=== PATIENT | female | born 1940 | race Caucasian/White ===

== ENCOUNTER 2024-10-22 09:26 | Inpatient (IN) | payer MEDICARE ==
[~2024-10-22] VITALS: Ht 147.3 cm; Wt 32.0 kg
[~2024-10-22 09:26] MED LIST: ATOR20TA66 PO; LEVO75TA PO; NICO-631 TD; PRED10TA PO; PROP10TA10 PO; RANI-290 PO; ZOLP5TAB8 PO
--- NOTE | 2024-10-22 09:44 | ELECTROCARDIOGRAPH REPORT ---
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 Marcus Owusu Measurements Intervals [place] Rate: 78 P: 0 ID: 0 QRS: 265 QRSD: 83 T: -74 QT: 377 QTc: 430 Interpretive Statements Atrial fibrillation Inferior infarct, old Anterior infarct, old Lateral leads are also involved Electronically Signed On 10-22-2024 11:17:[address] Marcus Owusu Please click the below link to view image of tracing.
--- NOTE | 2024-10-22 10:12 | Physician Documentation ---
History of Present Illness ~ Chief Complaint: Mechanical Fall Stated Complaint: FALL Time Seen by MD: 09:28 OK to notify your PCP?: Yes Primary Medical Doctor: nolberto Source: patient, RN/MD, EMS, RN notes reviewed, EMS notes reviewed Mode of Arrival: EMS, Other Exam Limitations: clinical condition HPI 83 year old female with history of dementia seen in bed 11 presents to the emergency department via EMS from [facility] due to a fall. It is unknown the amount of downtime and if the patient loss consciousness or not. She presents with a hematoma to her left forehead and is complaining of back pain but denies any neck pain. Patient uses 2L of oxygen at baseline. Patient is a poor historian due to dementia so history was obtained from EMS. Patient is reported as being very fatigued weak frail Tetanus within 5 Years?: No Medication Reconciliation Allergies: Coded Allergies: cephalexin (Verified Allergy, Intermediate, itching, 11/04/21) morphine (Verified Allergy, Intermediate, rash, 11/04/21) Scheduled Atorvastatin Calcium (Atorvastatin Calcium), 40 MG PO DAILY Famotidine (Famotidine), 1 TAB PO DAILY, (Reported) Ferrous Sulfate* (Ferrous Sulfate*), 1 TAB PO DAILY, (Reported) Fexofenadine Hcl* (Bailey*), 1 TAB PO DAILY, (Reported) Levothyroxine Sodium* (Synthroid*), 1 TAB PO DAILY, (Reported) Melatonin (Melatonin), 1 TAB PO HS, (Reported) Discontinued Medications Nicotine 14 MG Patch* (Habitrol 14 MG Patch*), 1 PATCH TD DAILY Discontinued Reason: patient no longer taking Prednisone (Prednisone), 10 MG PO QAM@0830 Discontinued Reason: patient no longer taking Propranolol Hcl* (Inderal*), 1 TAB PO, (Reported) Discontinued Reason: patient no longer taking Ranitidine Hcl (Zantac), 150 MG PO DAILY PRN, (Reported) Discontinued Reason: patient no longer taking Zolpidem Tartrate* (Ambien*), 2 TAB PO HS PRN for sleep, (Reported) Discontinued Reason: patient no longer taking Past Medical History Past Medical History: Atrial Fibrillation, Bowel Obstruction, Graves' Disease, Colon Cancer Past Surgical History: noncontributory Lives with: Family Lives In: Home Occupation: retired Review of Systems ROS Unable to obtain ROS due to dementia. Physical Exam Vital Signs: RN Vital Signs have been reviewed: Yes, Temperature: 98.1, Heart Rate: 79, Respiratory Rate: 16, BP: 150/125, Pulse Oximetry: 94, Weight: 32.000 Oxygen Flow Rate: 2.0 Pulse Oximetry Reflects: adequate oxygenation Physical Exam General: The patient is small, thin, and frail., Nontoxic appearing and is in no acute distress. Skin: [place], warm and dry with no rashes. HEENT: 2cm area of ecchymosis to left temporal scalp. Head was normocephalic Eyes - pupils equal, round, reactive to light and accommodation. Extraocular movements were intact. Conjunctivae were nonicteric. Ears - bilateral tympanic membranes were normal. The mouth and oropharynx were clear with moist mucous membranes. There were no pharyngeal exudates or erythema. Neck: Supple and nontender. There was no jugular venous distention, lymphadenopathy, thyromegaly or masses. Chest: Clear to auscultation bilaterally without wheezes, rales or rhonchi. No accessory muscle use. No dullness to percussion. Heart: Rate regular and rhythmic. S1, S2. No murmurs. Palpation of the chest wall was normal. No rubs or thrills. Abdomen: Soft, nontender and nondistended. Positive bowel sounds. No guarding or rebound. No hepatosplenomegaly or palpable masses. Extremities: No cyanosis, clubbing or edema. The patient moves all extremities. Pulses were equal and symmetric. Neurologic: Cranial nerves II-XII were intact. Sensation was intact to light touch throughout. Motor strength was 5/5 in all four extremities. Deep tendon reflexes were intact in both upper and lower extremities. Psychologic: The patient was oriented to person, place and time. The patient demonstrated appropriate judgement and insight. Progress Progress Note 1714: The case was discussed with Dr. Vargas who was informed on the patient and kindly agreed to admission. Results/Orders Reviewed/noted all lab results: Yes Results/Orders Orders - YONAS NIEVES MD Chest,Single View (10/22/24 09:29) Monitor (10/22/24 09:29) Electrocardiogram (10/22/24 09:29) Ct Lumbar Spine (10/22/24 09:30) Ct Cervical Spine (10/22/24 09:30) Ct Head (10/22/24 09:30) Normal Saline 1000ml (Sodium Chloride 10 (10/22/24 16:25) Culture Blood (10/22/24 16:41) Page Hospitalist (10/22/24 16:41) Fill Out Med Reconciliation (10/22/24 16:41) Cult Urine + [place] Ct (10/22/24 17:33) Completed Orders - YONAS NIEVES MD Cbc/Diff (10/22/24 09:29) MG (10/22/24 09:29) PBNP (10/22/24 09:29) Chest,Single View (10/22/24 09:29) Electrocardiogram (10/22/24 09:29) BMP (10/22/24 09:29) Hs Troponin I W Calculations (10/22/24 09:29) Ct Lumbar Spine (10/22/24 09:30) Ct Cervical Spine (10/22/24 09:30) Ct Head (10/22/24 09:30) Normal Saline 1000ml (Sodium Chloride 10 (10/22/24 16:25) Hs Troponin I W Calculations (10/22/24 16:26) Levofloxacin-Levaquin 750mg/D5 (Levaquin (10/22/24 16:45) Procalcitonin (10/22/24 16:41) Lacticsepsis (10/22/24 16:41) Ua W/Microscopic, Cult If Ind (10/22/24 16:37) Medications Received in ER Medications (Trade) Dose Ordered Sig/Jacinta Route PRN Reason Start Time Stop Time Status Last Admin Dose Admin (sodium chloride 1000ml IV soln) 500 ml ONCE ONCE IVB 10/22/24 16:25 10/22/24 16:27 DC 10/22/24 18:05 500 ML Sodium Chloride 1,000 ml @ 200 mls/hr Q5H ONCE IV 10/22/24 16:25 10/22/24 21:24 10/22/24 18:37 200 MLS/HR Levofloxacin 150 ml @ 100 mls/hr ONCE ONCE IV 10/22/24 16:45 10/22/24 18:14 DC 10/22/24 18:37 100 MLS/HR Vital Signs 10/22/24 10/22/24 10/22/24 10/22/24 09:30 10:27 10:33 12:54 Temp 98.1 Pulse 79 83 77 Resp 16 20 20 11 B/P (MAP) 150/125 148/81 (103) 143/60 (87) Pulse Ox 94 91 96 O2 Flow Rate 2.0 2.0 2.0 10/22/24 10/22/24 10/22/24 14:00 16:00 18:45 Pulse 77 79 Resp 18 13 16 B/P (MAP) 135/63 (87) 132/62 (85) Pulse Ox 96 96 O2 Flow Rate 2.0 2.0 Laboratory Tests Test 10/22/24 10:22 10/22/24 16:37 10/22/24 17:12 White Blood Count 17.5 H Red Blood Count 3.45 L Hemoglobin 11.6 L Hematocrit 35.3 Mean Corpuscular Volume 102.2 H Mean Corpuscular Hemoglobin 33.6 H Mean Corpuscular Hemoglobin Concent 32.8 L Red Cell Distribution Width 12.5 Platelet Count 211 Mean Platelet Volume 7.7 Neutrophils (%) (Auto) 90.8 H Lymphocytes (%) (Auto) 3.9 L Monocytes (%) (Auto) 4.9 Eosinophils (%) (Auto) 0.2 Basophils (%) (Auto) 0.2 Neutrophils # (Auto) 15.9 H Lymphocytes # (Auto) 0.7 L Monocytes # (Auto) 0.9 Eosinophils # (Auto) 0.0 Basophils # (Auto) 0.0 CBC Comment Sodium Level 144 Potassium Level 4.0 Chloride Level 103 Carbon Dioxide Level 36.6 H Anion Gap 4 L Blood Urea Nitrogen 19 H Creatinine 0.83 Estimated GFR/1.73 m2 65 BUN/Creatinine Ratio 22.9 H Glucose Level 190 H Calcium Level 9.6 Magnesium Level 2.0 Troponin I High Sensitivity 7 11 Pro-B-Type Natriuretic Peptide 268 Albumin 3.7 Chemistry Comments Urine Specimen Description Straight cath Urine Color Yellow Urine Clarity Cloudy Urine pH 5.5 Urine Specific [place] >=1.030 Urine Protein Negative Urine Glucose (UA) Negative Urine Ketones Negative Urine Occult Blood Negative Urine Nitrite Negative Urine Bilirubin Negative Urine Urobilinogen 0.2 Urine Leukocyte Esterase Negative Urine RBC None seen Urine WBC 5-10 H Urine Squamous Epithelial Cells Few Urine Bacteria 4+ Urine Mucus None seen Urine Culture Indicated Indicated Volume Urine Centrifuged 10 ml Urine Comment Lactic Acid Level 1.0 Troponin I High Sens Percent Delta 57 Troponin I Hi Sens Absolute Change 4 Procalcitonin 0.08 Microbiology Date/Time Source Procedure Growth Status 10/22/24 17:33 Urine Straight Cath Urine Culture - Preliminary Culture received. Resulted 10/22/24 17:12 Blood Arm Right Blood Culture - Preliminary NEGATIVE (LESS THAN 24 HOURS) Resulted Re-Evaluation Re-Evaluation : Re-Evaluation: Improved Progress Patient was hydrated. Laboratory work was obtained. Patient is fatigued weak frail very poor historian. History obtained mostly from EMS and medical record. Patient's white count was elevated at 17.5 hemoglobin 11 and 35 MCV 102.3 platelets 211 with a left shift of 90.8 neutrophils concerning for infection. Chemistry shows some slight CO2 retention at 36.6 otherwise reassuring glucose slightly elevated at 190 lactic acid however is negative at 1.0 procalcitonin at 0.08. Troponin is negative. Patient's urinalysis shows WBCs 5-10 and 4+ bacteria consistent with UTI. Patient's workup was reassuring. In addition to fluids patient then received levofloxacin 750 mg. I contacted the hospitalist Dr. Esposito who kindly agreed to admit the patient for further workup and care. 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 Pulse oximetry shows low oxygenation with 2 L at 94%. Abnormal, my interpretation. 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 Yonas Nieves Measurements Intervals [place] Rate: 78 P: 0 TN: 0 QRS: 265 QRSD: 83 T: -74 QT: 377 QTc: 430 Interpretive Statements Atrial fibrillation Inferior infarct, old Anterior infarct, old Lateral leads are also involved Electronically Signed On 10-22-2024 11:17:[address] Yonas Nieves Please click the below link to view image of tracing. EKG Date and Time:10/22/24 0943 Electronically Signed by: YONAS NIEVES MD Date and Time: 10/22/24 1117 Chest X-Ray : Additional Comments EXAM: XR Chest, 1 View CLINICAL INDICATION: CHEST PAIN TECHNIQUE: Frontal view of the chest. COMPARISON: None FINDINGS: LUNGS AND PLEURAL SPACES: Unremarkable. No consolidation. No pneumothorax. HEART: Cardiomegaly without overt failure. MEDIASTINUM: Unremarkable. Normal mediastinal contour. BONES/JOINTS: Unremarkable. No acute fracture. OTHER FINDINGS: . IMPRESSION: Cardiomegaly without overt failure. Electronically Signed by:TEE LEMON MD Date & Time: 10/22/[address] #1: Impression EXAM: CT Lumbar Spine Without Intravenous Contrast CLINICAL INDICATION: fall pain, TECHNIQUE: Axial computed tomography images of the lumbar spine without intravenous contrast. This CT exam was performed using one or more of the following dose reduction techniques: automated exposure control, adjustment of the mA and/or kV according to patient size, and/or use of iterative reconstruction technique. CONTRAST: COMPARISON: None FINDINGS: VERTEBRAE: Degenerative facet arthropathy throughout the lumbar spine, most prominent in the lower lumbar spine. No acute fracture. DISCS/SPINAL CANAL/NEURAL FORAMINA: Degenerative disc disease throughout the lumbar spine. SOFT TISSUES: Unremarkable. VASCULATURE: Scattered calcified atherosclerotic disease of aorta. KIDNEYS AND URETERS: Partially visualized renal cysts. OTHER FINDINGS: . . IMPRESSION: 1. No acute fracture. 2. Degenerative changes lumbar spine as described. Electronically Signed by:TEE LEMON MD Date & Time: 10/22/[address] #2: Impression CLINICAL INFORMATION: Fall injury. Pain. TECHNIQUE: Axial imaging was obtained through the brain without contrast. Axial CT imaging of the cervical spine was also obtained without contrast. Coronal and sagittal reformatted images were obtained, reviewed, and stored. One or more of the following dose reduction techniques were used: Automated exposure control. Adjustment of mA and/or kV according to patient size. CTDIvol = 49.2, 9.34 mGy DLP = 828, 151.12 mGy-cm COMPARISON: CT HEAD on DOS: 11/04/21 FINDINGS: CT HEAD: There is no acute intracranial hemorrhage or extraaxial fluid collection. No mass effect or midline shift. Atrophic changes with dilation of the ventricles and widening of the sulci. Basal cisterns are patent. Scattered areas of hypoattenuation are seen in the periventricular and subcortical white matter, which are nonspecific but most likely sequelae of small vessel ischemic disease.The calvarium is unremarkable. Paranasal sinuses and mastoid air cells are clear. CT CERVICAL SPINE: There is straightening of the normal cervical lordosis. No significant spondylolisthesis. Vertebral body heights are maintained. Posterior elements are intact. No evidence of acute fracture. Multilevel moderate to severe disc space narrowing with associated endplate sclerosis and endplate spurring. Multilevel facet and uncinate hypertrophy with areas of moderate neural foraminal stenosis. Prevertebral and paraspinal soft tissues are unremarkable. IMPRESSION: 1. No CT evidence of acute intracranial abnormality. 2. No evidence of acute fracture or spondylolisthesis in the cervical spine. 3. Nonacute findings as described above. Electronically Signed by:CHINO HONG DO Date & Time: 10/22/[address] [facility] [address] #3: Impression CLINICAL INFORMATION: Fall injury. Pain. TECHNIQUE: Axial imaging was obtained through the brain without contrast. Axial CT imaging of the cervical spine was also obtained without contrast. Coronal and sagittal reformatted images were obtained, reviewed, and stored. One or more of the following dose reduction techniques were used: Automated exposure control. Adjustment of mA and/or kV according to patient size. CTDIvol = 49.2, 9.34 mGy DLP = 828, 151.12 mGy-cm COMPARISON: CT HEAD on DOS: 11/04/21 FINDINGS: CT HEAD: There is no acute intracranial hemorrhage or extraaxial fluid collection. No mass effect or midline shift. Atrophic changes with dilation of the ventricles and widening of the sulci. Basal cisterns are patent. Scattered areas of hypoattenuation are seen in the periventricular and subcortical white matter, which are nonspecific but most likely sequelae of small vessel ischemic disease.The calvarium is unremarkable. Paranasal sinuses and mastoid air cells are clear. CT CERVICAL SPINE: There is straightening of the normal cervical lordosis. No significant spondylolisthesis. Vertebral body heights are maintained. Posterior elements are intact. No evidence of acute fracture. Multilevel moderate to severe disc space narrowing with associated endplate sclerosis and endplate spurring. Multilevel facet and uncinate hypertrophy with areas of moderate neural foraminal stenosis. Prevertebral and paraspinal soft tissues are unremarkable. IMPRESSION: 1. No CT evidence of acute intracranial abnormality. 2. No evidence of acute fracture or spondylolisthesis in the cervical spine. 3. Nonacute findings as described above. Electronically Signed by:CHINO HONG DO Date & Time: 10/22/24 1038 Heart Score: Heart Score Response (Comments) Value History Slightly Suspicious 0 EKG Repolarization Disturb 1 Age >65 2 Risk Factors 1 or 2 risk factors 1 Troponin Normal limit 0 Total 4 Medical Decision Making Additional info obtained from: old records Differential Dx:Considerations: Include: Closed head injury, Fracture(s), Intraabdominal injury, Pneumothorax, Cerebral contusion, Abrasion(s), Contusion(s), Hematoma(s), Encephalopathy, Other Departure Time of Disposition: 17:16 Disposition: 09 ADMITTED INPATIENT Admitted to Inpatient Unit: yes, to hospitalist Impression: Primary Impression: Contusion of left temporofrontal scalp Qualified Codes: S00.03XA - Contusion of scalp, initial encounter Additional Impressions: Fall Qualified Codes: W19.XXXA - Unspecified fall, initial encounter Afib Qualified Codes: I48.11 - Longstanding persistent atrial fibrillation Acute UTI Weakness Metabolic encephalopathy Condition: Stable Discharge Instructions: Fall Prevention in the Home, Adult, [id number] Referrals: NO PRIMARY CARE PROVIDER (PCP) Education Educated: Patient, Family Educated regarding: diagnosis, treatment, prognosis Signature Scribe Signature: Scribed for Yonas Nieves MD by Jovana Lawler . 10/22/24 11:02 Attestation: The note accurately reflects work and decisions made by me.Yonas Nieves MD 10/22/24 10:12 YONAS NIEVES MD Oct 22, 2024 10:12 JOVANA KIRKLAND Oct 22, 2024 11:04
[2024-10-22 10:38] LABS: BASOPHILS % (AUTO) 0.2 % (0-1); EOSINOPHILS % (AUTO) 0.2 % (0-6); HEMATOCRIT 35.3 % (35.0-45.0); HEMOGLOBIN 11.6 g/dl (12.0-16.0); LYMPHOCYTES # (AUTO) 0.7 X10'3 (1.1-4.8); LYMPHOCYTES % (AUTO) 3.9 % (21-51); MEAN CORPUSCULAR HEMOGLOBIN 33.6 PG (27.0-31.0); MEAN CORPUSCULAR HGB CONC 32.8 g/dL (33.0-36.5); MEAN CORPUSCULAR VOLUME 102.2 FL (78-98); MEAN PLATELET VOLUME 7.7 FL (7.4-10.4); MONOCYTES # (AUTO) 0.9 X10'3 (0-0.9); MONOCYTES % (AUTO) 4.9 % (2-12); NEUTROPHILS # (AUTO) 15.9 X10'3 (1.8-7.7); NEUTROPHILS % (AUTO) 90.8 % (42-75); PLATELET COUNT 211 X10'3 (140-440); RED BLOOD COUNT 3.45 X10'6 (4.20-5.60); RED CELL DISTRIBUTION WIDTH 12.5 % (11.5-14.5); WHITE BLOOD COUNT 17.5 X10'3 (4.5-11.0)
--- NOTE | 2024-10-22 10:41 | RADIOLOGY REPORT ---
CLINICAL INFORMATION: Fall injury. Pain. TECHNIQUE: Axial imaging was obtained through the brain without contrast. Axial CT imaging of the ce rvical spine was also obtained without contrast. Coronal and sagittal reformatted images were obtaine d, reviewed, and stored. One or more of the following dose reduction techniques were used: Automated exposure control. Adjustment of mA and/or kV according to patient size. CTDIvol = 49.2, 9.34 mGy DLP = 828, 151.12 mGy-cm COMPARISON: CT HEAD on DOS: 11/04/21 FINDINGS: CT HEAD: There is no acute intracranial hemorrhage or extraaxial fluid collection. No mass effect or midline shift. Atrophic changes with dilation of the ventricles and widening of the sulci. Basal cis terns are patent. Scattered areas of hypoattenuation are seen in the periventricular and subcortical white matter, which are nonspecific but most likely sequelae of small vessel ischemic disease.The jenn varium is unremarkable. Paranasal sinuses and mastoid air cells are clear. CT CERVICAL SPINE: There is straightening of the normal cervical lordosis. No significant spondylolis thesis. Vertebral body heights are maintained. Posterior elements are intact. No evidence of acute fr acture. Multilevel moderate to severe disc space narrowing with associated endplate sclerosis and end plate spurring. Multilevel facet and uncinate hypertrophy with areas of moderate neural foraminal evan nosis. Prevertebral and paraspinal soft tissues are unremarkable. IMPRESSION: 1. No CT evidence of acute intracranial abnormality. 2. No evidence of acute fracture or spondylolisthesis in the cervical spine. 3. Nonacute findings as described above.
[2024-10-22 10:49] LABS: ALBUMIN 3.7 G/DL (3.4-5.0); ANION GAP 4 (8-16); BLOOD UREA NITROGEN 19 MG/DL (7-18); BUN/CREATININE RATIO 22.9 (10.0-20.0); CALCIUM 9.6 MG/DL (8.5-10.1); CHLORIDE 103 MMOL/L (99-107); CREATININE 0.83 MG/DL (0.40-0.90); GLUCOSE 190 MG/DL (70-104); PRO BRAIN NATRIURETIC PEPTIDE 268 PG/ML (0-450); SODIUM 144 MMOL/L (135-145); TOTAL CARBON DIOXIDE 36.6 MMOL/L (24-32); eCRCL 25 ML/MIN; eGFR 65 ML/MIN
--- NOTE | 2024-10-22 10:50 | RADIOLOGY REPORT ---
EXAM: CT Lumbar Spine Without Intravenous Contrast CLINICAL INDICATION: fall pain, TECHNIQUE: Axial computed tomography images of the lumbar spine without intravenous contrast. This CT exam was performed using one or more of the following dose reduction techniques: automated exposu re control, adjustment of the mA and/or kV according to patient size, and/or use of iterative reconst ruction technique. CONTRAST: COMPARISON: None FINDINGS: VERTEBRAE: Degenerative facet arthropathy throughout the lumbar spine, most prominent in the lower lumbar spine. No acute fracture. DISCS/SPINAL CANAL/NEURAL FORAMINA: Degenerative disc disease throughout the lumbar spine. SOFT TISSUES: Unremarkable. VASCULATURE: Scattered calcified atherosclerotic disease of aorta. KIDNEYS AND URETERS: Partially visualized renal cysts. OTHER FINDINGS: . . IMPRESSION: 1. No acute fracture. 2. Degenerative changes lumbar spine as described.
[2024-10-22] MEDS ORDERED: ondansetron/PF 4mg/2ml inj IV PRN (17:20)
[2024-10-22] MEDS ORDERED: HYDROcodone/acetaminophen 5mg/325mg tablet PO PRN (17:20)
[2024-10-22] MEDS ORDERED: acetaminophen 325mg tablet PO PRN ×2 (17:20)
[2024-10-22] MEDS ORDERED: magnesium hydroxide 30ml (MOM) UD suspension PO PRN (17:20)
[2024-10-22] MEDS ORDERED: magnesium sulf-water 2g/50mL 50 ML IV PRN (17:20)
[2024-10-22] MEDS ORDERED: potassium Cl 20 mEq SR tablet PO PRN ×2 (17:20)
[2024-10-22] MEDS ORDERED: magnesium sulf-water 4G/100mL 100 ML IV PRN (17:20)
[2024-10-22] MEDS ORDERED: mag hydrox/Alum hydrox/simeth 30ml oral suspension PO PRN (17:20)
[2024-10-22] MEDS ORDERED: potassium Cl 40MEQ/1/2NS 520ml 520 ML IV PRN (17:20)
[2024-10-22] MEDS ORDERED: HYDROcodone/acetaminophen 10/325mg tab PO PRN (17:20)
[2024-10-22 17:28] LABS: BILIRUBIN,URINE NEGATIVE (Neg); CLARITY,URINE CLOUDY (Clear); COLOR,URINE YELLOW (Yellow); GLUCOSE, URINE NEGATIVE (Neg); KETONES,URINE NEGATIVE (Neg); LEUKOCYTE ESTERASE ,URINE NEGATIVE (Neg); NITRITES, URINE NEGATIVE (Neg); OCCULT BLOOD,URINE NEGATIVE (Neg); PH,URINE 5.5 (4.8-8.0); PROTEIN,URINE NEGATIVE (Neg); UROBILINOGEN,URINE 0.2 E.U/dL (0.2-1.0)
[2024-10-22 17:32] LABS: UA COLLECTION TYPE STRAIGHT CATH
[2024-10-22 17:33] LABS: BACTERIA,URINE 4+ /HPF (Neg); MUCUS STRANDS NONE SEEN /LPF (Neg); RBC,URINE NONE SEEN /HPF (0-2); SQUAMOUS EPITHELIAL CELL,UR FEW /LPF (FEW)
[2024-10-22] MEDS: normal saline 1000ML IV soln IVB ONE (18:05)
[2024-10-22] MEDS: normal saline 1000ml 1,000 ML IV ONE (18:37)
[2024-10-22] MEDS: levoFLOXACIN-Levaquin 750MG/D5 150 ML IV ONE (18:37)
[2024-10-22] MEDS ORDERED: FERR325T28 PO (18:50)
[2024-10-22] MEDS ORDERED: MELA10TA20 PO (18:50)
[2024-10-22] MEDS ORDERED: FAMO20TA8 PO (18:50)
[2024-10-22] MEDS ORDERED: FEXO-271 PO (18:50)
[2024-10-22] MEDS: K and/or MAG REPLACEMENT MC SCH (20:01)
[2024-10-22] MEDS: enoxaparin 40mg/0.4ml syringe SQ SCH (20:16)
[2024-10-22] MEDS: docusate sod 100mg capsule PO SCH (20:16)
[2024-10-22 22:00] VITALS: BP 136/58; PULSE 78; RESP 16; TEMP 98.4; O2SAT 93
--- NOTE | 2024-10-22 22:13 | HISTORY AND PHYSICAL ---
History & Physical Providers to CC ~ History of Present Illness Reason for Admit\Complaint: Fall with metabolic encephalopathy and UTI History of Present Illness This is a 83-year-old female who resides at [facility] in [place] with history of dementia in his a poor historian in regards to her past medical history that is the information for this H and P is obtained through review of the records provided which are scant and the EMR had fallen today at the facility this was not witnessed the patient did hit her head is there is a hematoma on the forehead the patient has no acute complaints currently and all imaging studies were unremarkable including a lumbar spine CT cervical spine CT head CT scan and chest x-ray- the patient has a significant urinalysis for UTI is allergic to cephalosporins in his placed on IV Levaquin Allergies: Coded Allergies: cephalexin (Verified Allergy, Intermediate, itching, 11/04/21) morphine (Verified Allergy, Intermediate, rash, 11/04/21) Home Medications Home Medications Active Atorvastatin Calcium 20 Mg Tablet 40 Mg PO DAILY Reported Melatonin 10 Mg Tab.rapdis 1 Tab PO HS 30 Days Famotidine 20 Mg Tablet 1 Tab PO DAILY 30 Days Bailey* (Fexofenadine HCl) 180 Mg Tablet 1 Tab PO DAILY 30 Days Ferrous Sulfate* (Ferrous Sulfate) 325 Mg Tablet 1 Tab PO DAILY Synthroid* (Levothyroxine Sodium) 75 Mcg Tablet 1 Tab PO DAILY Past Medical History Past Medical History Atrial fibrillation, bowel obstruction, Graves disease, colon cancer, COPD Past Surgical History Surgical History Comment Unobtainable Past Social History Social History Comment Lives at assisted living facility per POLST form is a full code ROS ROS Except for positives in the HPI the rest of the 14 point review systems is negative Exam Vitals: Vital Signs Date Time Temp Pulse Resp B/P (MAP) Pulse Ox O2 Delivery O2 Flow Rate FiO2 10/22/24 20:56 98.4 82 101/64 (76) 98 2.0 10/22/24 18:45 16 General: Gen. No acute distress alert and oriented to self and the fact that she is in the hospital Lungs clear to ascultation bilaterally, no wheezes rales or rhonchi appreciated Heart normal sinus rhythm no murmurs rubs or clicks noted Abdomen soft nontender bowel sounds are normoactive Lower extremities no clubbing cyanosis, nor edema appreciated bilaterally Diagnostic Data Last Recorded Lab Results: 10/22/24 1022 10/22/24 1022 Advance Care Planning Advanced Care planning: N/A Problems: (1) Acute UTI Status: Acute Additional Plan # mechanical fall-no sustained injuries are appreciated on CT scans of the head, cervical spine and lumbar spine Physical therapy # metabolic encephalopathy secondary to UTI with underlining dementia Treat the UTI with IV Levaquin # UTI secondary to cystitis IV Levaquin Awaiting urine culture results # hyperlipidemia Atorvastatin # hypothyroidism Levothyroxine # DVT and stroke prophylaxis SCDs and SQ Lovenox The patient is a full code as per POLST form Date of Service: Oct 22, 2024 Billing Provider: TEE MCKEON DO Common Visit Codes: [id number] INP/OBS CARE (HIGH) TEE MCKEON DO Oct 22, 2024 22:13
[2024-10-23 06:00] VITALS: BP 129/60; PULSE 84; RESP 16; TEMP 98.5; O2SAT 95
[2024-10-23 06:11] LABS: BASOPHILS % (AUTO) 0.2 % (0-1); EOSINOPHILS # (AUTO) 0.1 X10'3 (0-0.9); EOSINOPHILS % (AUTO) 0.4 % (0-6); HEMOGLOBIN 10.4 g/dl (12.0-16.0); LYMPHOCYTES # (AUTO) 0.6 X10'3 (1.1-4.8); LYMPHOCYTES % (AUTO) 4.4 % (21-51); MEAN CORPUSCULAR HEMOGLOBIN 34.2 PG (27.0-31.0); MEAN CORPUSCULAR HGB CONC 33.4 g/dL (33.0-36.5); MEAN CORPUSCULAR VOLUME 102.4 FL (78-98); MONOCYTES % (AUTO) 7.8 % (2-12); NEUTROPHILS % (AUTO) 87.2 % (42-75); PLATELET COUNT 167 X10'3 (140-440); RED BLOOD COUNT 3.03 X10'6 (4.20-5.60); RED CELL DISTRIBUTION WIDTH 12.3 % (11.5-14.5); WHITE BLOOD COUNT 12.7 X10'3 (4.5-11.0)
[2024-10-23 06:22] LABS: ALANINE AMINOTRANSFERASE 26 U/L (12-78); ALBUMIN 3.1 G/DL (3.4-5.0); ALKALINE PHOSPHATASE 55 IU/L (46-116); ANION GAP 4 (8-16); ASPARTATE AMINO TRANSFERASE 31 U/L (10-37); BILIRUBIN,TOTAL 0.5 MG/DL (0.1-1.0); BLOOD UREA NITROGEN 12 MG/DL (7-18); BUN/CREATININE RATIO 16.4 (10.0-20.0); CALCIUM 8.5 MG/DL (8.5-10.1); CHLORIDE 104 MMOL/L (99-107); CREATININE 0.73 MG/DL (0.40-0.90); GLUCOSE 102 MG/DL (70-104); MAGNESIUM 1.9 MG/DL (1.5-2.4); POTASSIUM 4.1 MMOL/L (3.5-5.1); SODIUM 143 MMOL/L (135-145); TOTAL CARBON DIOXIDE 34.6 MMOL/L (24-32); TOTAL PROTEIN 6.1 G/DL (6.4-8.2); eCRCL 29 ML/MIN; eGFR 76 ML/MIN
[2024-10-23] MEDS: famotidine 20mg tablet PO SCH (07:24)
[2024-10-23] MEDS: atorvastatin 20mg tablet PO SCH (07:24)
[2024-10-23] MEDS: ferrous sulfate 325mg tablet PO SCH (07:24)
[2024-10-23] MEDS: levoFLOXACIN-Levaquin 500mg/D5 100 ML IV SCH (07:24)
[2024-10-23] MEDS: levoTHYROXINE 75mcg tablet PO SCH (07:25)
[2024-10-23] MEDS: cetirizine 10mg tablet PO SCH (07:25)
[2024-10-23 11:00] VITALS: BP 128/65; PULSE 81; RESP 15; TEMP 98.1; O2SAT 97
[2024-10-23] MEDS ORDERED: famotidine 20mg tablet PO SCH ×2 (13:33→13:34)
--- NOTE | 2024-10-23 17:33 | PROGRESS NOTE ---
Daily Progress Note Providers to CC ~ Antibiotic Timeout Antibiotic Ordered?: Yes Subjective The patient was resting in bed when I evaluated her I asked the patient if she ever uses oxygen she informed me sometimes the patient is not in any respiratory distress the patient comes from assisted living facility will likely be able to return back to the facility once physical therapy works with the patient Objective Vital Signs Date Time Temp Pulse Resp B/P (MAP) Pulse Ox O2 Delivery O2 Flow Rate FiO2 10/23/24 11:00 98.1 81 15 128/65 (86) 97 Nasal Cannula 2.0 Result Diagram: 10/23/24 0505 10/23/24 0505 Gen. No acute distress alert and oriented to self and the fact that she is in the hospital Lungs clear to ascultation bilaterally, no wheezes rales or rhonchi appreciated Heart normal sinus rhythm no murmurs rubs or clicks noted Abdomen soft nontender bowel sounds are normoactive Lower extremities no clubbing cyanosis, nor edema appreciated bilaterally Problem\Assessment\Plan Problems/Diagnosis: (1) Acute UTI # mechanical fall-no sustained injuries are appreciated on CT scans of the head, cervical spine and lumbar spine Physical therapy # metabolic encephalopathy secondary to UTI with underlining dementia Treat the UTI with IV Levaquin # UTI secondary to cystitis IV Levaquin Awaiting urine culture results 10/23 white blood cell count significantly downtrended today # hyperlipidemia Atorvastatin # hypothyroidism Levothyroxine # DVT and stroke prophylaxis SCDs and SQ Lovenox The patient is a full code as per POLST form Date of Service: Oct 23, 2024 Billing Provider: TEE MCKEON DO Common Visit Codes: [id number] INP/OBS CARE(HIGH) TEE MCKEON DO Oct 23, 2024 17:33
[2024-10-23 18:00] VITALS: BP 165/73; PULSE 68; RESP 14; TEMP 97.9; O2SAT 98
[2024-10-23] MEDS: enoxaparin 30mg/0.3ml syringe SQ SCH (20:00)
[2024-10-23] MEDS: Melatonin 3mg tablet PO SCH (21:06)
[2024-10-23] MEDS: normal saline 1000ml 1,000 ML IV SCH (21:12)
[2024-10-23 21:45] LABS: OCCULT BLOOD STOOL NEGATIVE (Neg)
[2024-10-23 22:00] VITALS: BP 124/61; PULSE 75; RESP 14; TEMP 97.4; O2SAT 95
[2024-10-24 00:05] LABS: HEMATOCRIT 31.1 % (35.0-45.0); HEMOGLOBIN 10.3 g/dl (12.0-16.0); MEAN CORPUSCULAR HEMOGLOBIN 33.9 PG (27.0-31.0); MEAN CORPUSCULAR HGB CONC 33.2 g/dL (33.0-36.5); MEAN CORPUSCULAR VOLUME 102.3 FL (78-98); MEAN PLATELET VOLUME 7.8 FL (7.4-10.4); PLATELET COUNT 150 X10'3 (140-440); RED BLOOD COUNT 3.04 X10'6 (4.20-5.60); RED CELL DISTRIBUTION WIDTH 12.6 % (11.5-14.5); WHITE BLOOD COUNT 12.6 X10'3 (4.5-11.0)
[2024-10-24 06:06] LABS: BASOPHILS % (AUTO) 0.2 % (0-1); EOSINOPHILS # (AUTO) 0.2 X10'3 (0-0.9); EOSINOPHILS % (AUTO) 1.7 % (0-6); HEMATOCRIT 31.5 % (35.0-45.0); HEMOGLOBIN 10.3 g/dl (12.0-16.0); LYMPHOCYTES # (AUTO) 0.6 X10'3 (1.1-4.8); MEAN CORPUSCULAR HEMOGLOBIN 33.8 PG (27.0-31.0); MEAN CORPUSCULAR HGB CONC 32.7 g/dL (33.0-36.5); MEAN CORPUSCULAR VOLUME 103.3 FL (78-98); MEAN PLATELET VOLUME 7.8 FL (7.4-10.4); MONOCYTES # (AUTO) 0.9 X10'3 (0-0.9); NEUTROPHILS # (AUTO) 9.9 X10'3 (1.8-7.7); NEUTROPHILS % (AUTO) 85.1 % (42-75); PLATELET COUNT 144 X10'3 (140-440); RED BLOOD COUNT 3.05 X10'6 (4.20-5.60); RED CELL DISTRIBUTION WIDTH 12.4 % (11.5-14.5); WHITE BLOOD COUNT 11.7 X10'3 (4.5-11.0)
[2024-10-24 06:22] LABS: ALANINE AMINOTRANSFERASE 23 U/L (12-78); ALBUMIN 2.8 G/DL (3.4-5.0); ALKALINE PHOSPHATASE 54 IU/L (46-116); ANION GAP 3 (8-16); ASPARTATE AMINO TRANSFERASE 27 U/L (10-37); BILIRUBIN,TOTAL 0.4 MG/DL (0.1-1.0); BLOOD UREA NITROGEN 10 MG/DL (7-18); BUN/CREATININE RATIO 16.4 (10.0-20.0); CALCIUM 8.2 MG/DL (8.5-10.1); CHLORIDE 107 MMOL/L (99-107); CREATININE 0.61 MG/DL (0.40-0.90); GLUCOSE 78 MG/DL (70-104); MAGNESIUM 1.9 MG/DL (1.5-2.4); POTASSIUM 3.9 MMOL/L (3.5-5.1); SODIUM 145 MMOL/L (135-145); TOTAL CARBON DIOXIDE 35.2 MMOL/L (24-32); TOTAL PROTEIN 5.6 G/DL (6.4-8.2); eCRCL 35 ML/MIN; eGFR > 90 ML/MIN
[2024-10-24 07:50] VITALS: BP 106/44; PULSE 75; RESP 16; TEMP 97.3; O2SAT 97
[2024-10-24 08:00] VITALS: RESP 16; O2SAT 98
[2024-10-24] MEDS: levoFLOXACIN-Levaquin 250mg/D5 50 ML IV SCH (09:58)
[2024-10-24 11:27] LABS: HEMATOCRIT 29.5 % (35.0-45.0); HEMOGLOBIN 9.8 g/dl (12.0-16.0); MEAN CORPUSCULAR HEMOGLOBIN 34.3 PG (27.0-31.0); MEAN CORPUSCULAR HGB CONC 33.2 g/dL (33.0-36.5); MEAN CORPUSCULAR VOLUME 103.2 FL (78-98); MEAN PLATELET VOLUME 7.9 FL (7.4-10.4); PLATELET COUNT 147 X10'3 (140-440); RED BLOOD COUNT 2.86 X10'6 (4.20-5.60); RED CELL DISTRIBUTION WIDTH 12.4 % (11.5-14.5); WHITE BLOOD COUNT 10.4 X10'3 (4.5-11.0)
[2024-10-24] MEDS ORDERED: LEVO-65 PO (12:43)
[2024-10-24] MEDS ORDERED: SACC250C PO (12:44)
--- NOTE | 2024-10-24 21:51 | DISCHARGE SUMMARY ---
Discharge Summary Providers to CC ~ Discharge Summary Admission Diagnosis: Met Encph/ UTI Hospital Course DATE OF ADMISSION: 10/22/2024 DATE OF DISCHARGE: 10/24/2024 Discharge Diagnosis\Comment: Mechanical fall no sustained injuries, metabolic encephalopathy secondary to UTI and underlying dementia, UTI secondary to cystitis, hyperlipidemia, hypothyroidism Operations\Procedures: None Consultants: None Complications: None Condition on DC: Stable New Medications: Levofloxacin (Levofloxacin) 500 Mg Tablet 500 MG PO DAILY, #3 TAB Saccharomyces Boulardii (Florastor) 250 Mg Capsule 1 CAP PO Q12H for loose stool for 10 Days, #20 CAP 0 Refills Continued Medications: Atorvastatin Calcium (Atorvastatin Calcium) 20 Mg Tablet 40 MG PO DAILY, #60 TAB Famotidine (Famotidine) 20 Mg Tablet 1 TAB PO DAILY for 30 Days, #60 TAB 0 Refills Ferrous Sulfate* (Ferrous Sulfate*) 325 Mg Tablet 1 TAB PO DAILY, TAB Fexofenadine Hcl* (Bailey*) 180 Mg Tablet 1 TAB PO DAILY for allergy symptoms for 30 Days, #30 TAB Levothyroxine Sodium* (Synthroid*) 75 Mcg Tablet 1 TAB PO DAILY, TAB Melatonin (Melatonin) 10 Mg Tab.rapdis 1 TAB PO HS for sleep for 30 Days, #30 TAB 0 Refills Discharge Summary: I admitted the patient with the following HPI:This is a 83-year-old female who resides at [facility] in [place] with history of dementia in his a poor historian in regards to her past medical history that is the information for this H and P is obtained through review of the records provided which are scant and the EMR had fallen today at the facility this was not witnessed the patient did hit her head is there is a hematoma on the forehead the patient has no acute complaints currently and all imaging studies were unremarkable including a lumbar spine CT cervical spine CT head CT scan and chest x-ray- the patient has a significant urinalysis for UTI is allergic to cephalosporins in his placed on IV Lev[place]. [place] [id number] on admission with a left shift this downtrended and [place] [id number] The patient is negative urine culture and blood culture The patient is mentation slightly improved however she has underlying dementia and is bed-bound physical therapy evaluated the patient and assessed that the patient had no rehab potential due to muscle wasting. Gen. No acute distress alert and oriented to self and the fact that she is in the hospital Lungs clear to ascultation bilaterally, no wheezes rales or rhonchi appreciated Heart normal sinus rhythm no murmurs rubs or clicks noted Abdomen soft nontender bowel sounds are normoactive Lower extremities no clubbing cyanosis, nor edema appreciated bilaterally The patient was medically cleared to be discharged to [facility] on 10/24/2024 The patient was seen and evaluated on day of discharge. Time spent on discharge 35 minutes *Problems/Diagnosis: (1) Acute UTI Status: Acute Total Time Spent on D/C: > 30 Minutes Date of Service: Oct 24, 2024 Billing Provider: TEE MCKEON DO Common Visit Codes: 12311-MHA/OBS DISCH DAY >30min TEE MCKEON DO Oct 24, 2024 21:51
== END 2024-10-24 14:21 | disposition home or self-care (01) | DRG 689 ==
LOC: ER 09:28 → ED HOLD 17:25 → SUR 3N 21:16
PROVIDERS: ADMIT Family Medicine; ATTEND Family Medicine
DX: N30.90 Cystitis, unspecified without hematuria (principal); G93.41 Metabolic encephalopathy; I48.11 Longstanding persistent atrial fibrillation; F03.90 Unspecified dementia, unspecified severity, without behavioral disturbance, psychotic disturbance, mood disturbance, and anxiety; J44.9 Chronic obstructive pulmonary disease, unspecified; S00.03XA Contusion of scalp, initial encounter; E78.5 Hyperlipidemia, unspecified; E03.9 Hypothyroidism, unspecified; W18.39XA Other fall on same level, initial encounter; Y93.89 Activity, other specified; Y92.89 Other specified places as the place of occurrence of the external cause; Y99.8 Other external cause status; Z85.038 Personal history of other malignant neoplasm of large intestine; Z88.1 Allergy status to other antibiotic agents; Z88.5 Allergy status to narcotic agent
CPT/HCPCS: 36415; 70450; 71045; 72125; 72131; 80048; 80053; 81001; 82272; 83605; 83735; 83880; 84145; 84484; 85025; 85027; 87040; 87081; 87088; 92508; 92616; 93005; 96365; 96366; 97110; 97162; 97530; 99285; A4353; A6212; A6213; A6258; G0378; J1650; J1956; J7030

== ENCOUNTER 2025-04-19 07:05 | Emergency (ER) | payer MEDICARE ==
[~2025-04-19] VITALS: Ht 154.9 cm; Wt 35.0 kg
[~2025-04-19 07:05] MED LIST changes: +FAMO20TA8 PO; +FERR325T28 PO; +FEXO-404 PO; +LEVO-65 PO; +MELA10TA20 PO; -NICO-631 TD; -PRED10TA PO; -PROP10TA10 PO; -RANI-290 PO; +SACC250C PO; -ZOLP5TAB8 PO
--- NOTE | 2025-04-19 07:38 | Physician Documentation ---
History of Present Illness ~ Chief Complaint: Head Injury Stated Complaint: FALL HIP BACK AND LEG PAIN Time Seen by MD: 07:29 Primary Medical Doctor: nolberto Mode of Arrival: EMS HPI This is a 84-year-old female with a history of dementia, recurrent falls, atrial fibrillation, colon cancer, COPD resident at [facility] was brought in by the EMS after unwitnessed fall. Patient is a poor historian, as per EMS, patient was found on floor, unknown down time, not on blood thinners. Patient was brought in with a cervical collar. Patient complains of pain in the back of her head, neck and in her leg. Vital signs are stable and patient has sustained a laceration on the occipital region which was poorly visible due to crusted blood around the laceration. Patient is DNR. Day of Fall: Apr 19, 2025 Occurred: this morning Injury/Pain Location: head Context: tripped Pain Severity: moderate Tetanus within 5 Years?: No Medication Reconciliation Allergies: Coded Allergies: cephalexin (Verified Allergy, Intermediate, itching, 11/04/21) morphine (Verified Allergy, Intermediate, rash, 11/04/21) Scheduled Atorvastatin Calcium (Atorvastatin Calcium), 40 MG PO DAILY Famotidine (Famotidine), 1 TAB PO DAILY, (Reported) Ferrous Sulfate* (Ferrous Sulfate*), 1 TAB PO DAILY, (Reported) Fexofenadine Hcl* (Bailey*), 1 TAB PO DAILY, (Reported) Levofloxacin (Levofloxacin), 500 MG PO DAILY Levothyroxine Sodium* (Synthroid*), 1 TAB PO DAILY, (Reported) Melatonin (Melatonin), 1 TAB PO HS, (Reported) Saccharomyces Boulardii (Florastor), 1 CAP PO Q12H Past Medical History Past Medical History: Atrial Fibrillation, Bowel Obstruction, Graves' Disease, Colon Cancer Past Surgical History: noncontributory Lives with: Family Lives In: Home Occupation: retired Review of Systems ROS Constitutional: Pain in the occipital region, cervical spine and leg pain, hypothermia. No fever, chills or pain any where else Unable to obtain full review of systems due to patient's dementia and a she is a poor historian Physical Exam Vital Signs: Temperature: 97.8, Source: Axillary, Heart Rate: 74, Respiratory Rate: 17, BP: 123/69, Weight: 35.000 Physical Exam General: 2 cm laceration in the right occipital region. Awake and Alert, no acute distress. HEENT: Conjunctiva pink, Sclera clear, Mucus Membranes moist Neck: Supple without masses and tenderness. Resp: Unlabored. Equal breath sounds bilaterally. Heart: Regular rhythm, normal S1 and S2, no rub, murmur or gallop, muffled heart sounds. Abdomen: Soft and non tender no organomegaly. Normal bowel sounds x4 quadrant normoactive. No guarding or rigidity. Extremities: Normal ROM, no swelling, nontender. No cyanosis,clubbing or edema. 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 Skin: Warm and Dry. Progress Results/Orders Results/Orders Orders - NYMALGORZATA HARDY MD Culture Blood (04/19/25 08:23) Completed Orders - NYMALGORZATA HARDY MD Lidocaine 1% W/Epi 1:100,000 (Xylocaine (04/19/25 07:30) Normal Saline 1000ml (0.9% Sodium Chlori (04/19/25 08:00) Lacticsepsis (04/19/25 08:23) Procalcitonin (04/19/25 08:23) * (B) Jarrett- Non Protocol * Q12H@07,19 (04/19/25 08:35) Normal Saline 1000ml (0.9% Sodium Chlori (04/19/25 09:25) Vital Signs 04/19/25 04/19/25 04/19/25 04/19/25 07:10 07:27 08:05 08:27 Temp 97.8 97.8 97.8 Pulse 74 85 88 Resp 17 15 16 B/P (MAP) 123/69 127/57 (80) 108/54 (72) Pulse Ox 95 95 O2 Flow Rate 0 0 04/19/25 09:06 Temp 94.8 Pulse 89 Resp 16 B/P (MAP) 95/54 (68) Pulse Ox 100 O2 Flow Rate 2.0 Laboratory Tests Test 04/19/25 07:41 04/19/25 07:52 04/19/25 08:45 Urine Comment White Blood Count 21.1 H Red Blood Count 2.83 L Hemoglobin 9.8 L Hematocrit 29.6 L Mean Corpuscular Volume 104.6 H Mean Corpuscular Hemoglobin 34.7 H Mean Corpuscular Hemoglobin Concent 33.1 Red Cell Distribution Width 12.8 Platelet Count 228 Mean Platelet Volume 7.5 Neutrophils (%) (Auto) 84.9 H Lymphocytes (%) (Auto) 7.7 L Monocytes (%) (Auto) 7.2 Eosinophils (%) (Auto) 0.1 Basophils (%) (Auto) 0.1 Neutrophils # (Auto) 17.9 H Lymphocytes # (Auto) 1.6 Monocytes # (Auto) 1.5 H Eosinophils # (Auto) 0.0 Basophils # (Auto) 0.0 CBC Comment Prothrombin Time 10.7 INR International Normalized Ratio 1.0 Coagulation Comments Sodium Level 144 Potassium Level 4.7 Chloride Level 101 Carbon Dioxide Level 34.2 H Anion Gap 9 Blood Urea Nitrogen 27 H Creatinine 0.89 Estimated GFR/1.73 m2 60 BUN/Creatinine Ratio 30.3 H Glucose Level 215 H Lactic Acid Level 7.0 *H Calcium Level 8.9 Total Bilirubin 0.5 Aspartate Amino Transf (AST/SGOT) 30 Alanine Aminotransferase (ALT/SGPT) 31 Alkaline Phosphatase 48 Total Creatine Kinase 122 Total Protein 6.6 Albumin 3.6 Globulin 3.0 Albumin/Globulin Ratio 1.2 Procalcitonin < 0.05 Chemistry Comments Urine Specimen Description Jarrett cath Urine Color Yellow Urine Clarity Slightly cloudy Urine pH 6.0 Urine Specific Story 1.025 Urine Protein Negative Urine Glucose (UA) Negative Urine Ketones Negative Urine Occult Blood Negative Urine Nitrite Positive H Urine Bilirubin Negative Urine Urobilinogen 0.2 Urine Leukocyte Esterase Negative Urine RBC None seen Urine WBC 5-10 H Urine Squamous Epithelial Cells None seen Urine Bacteria 4+ Urine Mucus None seen Urine Culture Indicated Indicated Volume Urine Centrifuged 10 ml Microbiology Date/Time Source Procedure Growth Status 04/19/25 09:15 Urine Jarrett Cath Urine Culture - Preliminary Gram Negative Sean Resulted 04/19/25 08:59 Blood Iv Start Blood Culture - Preliminary NO GROWTH AFTER 1 DAY Resulted EKG/XRAY/CT/US/VASC/MRI CT : Impression Patient: SHANIQUE DRAKE Medical Record: [id number] : 1940, Age: 84 Sex: Female Location: ER Patient Status: REG ER Service Date/Time: 04/19/25/ Ordering Physician: ANTHONY, ERIC MUNDO Exam: CT CERVICAL SPINE EXAM: CT CT CERVICAL SPINE INDICATION: Mechanical fall, hematoma EXAM DATE: 04/19/2025 07:55 AM COMPARISON: CT CT CERVICAL SPINE on DOS: 10/22/24 TECHNIQUE: Multiple axial CT images of the cervical spine were obtained using bone algorithm. Sagittal and coronal reformatting was done. Bone and soft tissue windows were reviewed. Radiation Dose Information: CT Dose: CTDI volume is 9.2 mGy. Dose-length product is 191.8 mGy*cm FINDINGS: The cervical alignment is intact. There is reversal of the cervical lordosis. No acute cervical spine fracture is identified. The vertebral body heights are intact. No suspicious osseous lesions are identified. Multilevel intervertebral disc space narrowing. Multilevel neural foraminal stenosis noted due to facet and uncovertebral hypertrophy. No significant spinal stenosis. There is no prevertebral soft tissue swelling. There is thickening in the lung apices. Emphysema is present. IMPRESSION: 1. No evidence of acute cervical spine fracture or traumatic malalignment. 2. Multilevel degenerative changes of the cervical spine. 3. Emphysema. Electronically Signed by:BREE SHER MD Date & Time: 04/19/25832 Dictated by: BREE SHER MD Dictation date and time: 04/19/25832 Primary Care Provider: NO PRIMARY CARE PROVIDER EXAM: CT CT HEAD INDICATION: Mechanical fall, hematoma TECHNIQUE: CT of the head without intravenous contrast. Radiation Dose : 1. Head: CT Dose: CTDI volume is 53 mGy. Dose-length product is 925.2 mGy*cm The dose indicators for CT are the volume Computed Tomography (CT) Dose Index (CTDIvol) and the Dose Length Product (DLP), and are measured in units of mGy and mGy-cm, respectively. These indicators are not patient dose, but values generated from the CT scanner acquisition factors. The report includes radiation exposure data for exposures received during this examination. COMPARISON: CT CT HEAD on DOS: 10/22/24, CT HEAD on DOS: 11/04/21 FINDINGS: Small to moderate right frontal subdural hematoma measuring up to 0.9 cm in maximal diameter. Approximately 0.6 cm of leftward midline shift. Left high frontal lobe intraparenchymal hemorrhage measures 0.7 cm. The ventricles, sulci and cisterns are age appropriate. The maurice-white differentiation is intact. Patchy periventricular and subcortical white matter hypoattenuation is nonspecific but may be related to small vessel ischemic disease. The visualized paranasal sinuses and mastoid air cells are clear. Large left parietal soft-tissue hematoma and small soft-tissue laceration. IMPRESSION: Small to moderate right frontal subdural hematoma measuring up to 0.9 cm in maximal diameter. Approximately 0.6 cm of leftward midline shift. Left high frontal lobe intraparenchymal hemorrhage measures 0.7 cm. Critical Result: Intracranial hemorrhage Findings discussed with MALGORZATA CHASE at 04/19/2025 08:21 AM, and acknowledged receipt and understanding of the findings. Radiation optimization: All CT scans at this facility use at least one of these dose optimization techniques: automated exposure control mA and/or kV adjustment per patient size (includes targeted exams where dose is matched to clinical indication) or iterative reconstruction. Electronically Signed by:MARCELLUS STEWART MD Date & Time: 04/19/25820 Dictated by: MARCELLUS STEWART MD Dictation date and time: 04/19/25820 Primary Care Provider: NO PRIMARY CARE PROVIDER cc: ERIC ANTHONY RES ~ Medical Decision Making Additional information obtaine: old records, other Findings Vital signs stable stable on arrival. However she got hypotensive with systolic blood pressure in the 90s and received 1 L of fluid. [place] [address] has been and received 1 g of Rocephin for possible UTI. Patient also had a small hematoma about 3 cm which was gently evacuated manually and the scalp region was numbed with lidocaine epinephrine, the scalp was irrigated thoroughly with normal saline and three non absorbable Vicryl sutures were placed. Patient's blood pressure improved and currently hemodynamically stable. GCS 15, pupils equal round and reactive. 84-year-old female presenting after mechanical fall this morning, reports no headache, no loss of consciousness or vomiting, seizure. No focal weakness or sensory deficits. CT of the head showed 0.9 cm subdural hemorrhage and 0.6 cm midline shift. Patient also has 0.7 cm small intracranial hemorrhage. Patient came in with a C collar which was removed later. No evidence of skull fracture or herniation. Neurosurgery was consulted for transfer and a possible surge ry/evacuation of hematoma who kindly accepted for the transfer. Differential Dx:Considerations: Include: Closed head injury, Cardiac injury, Fracture(s), Intraabdominal injury, Pneumothorax, Cerebral contusion, Pulmonary contusion, Spine injury, Tracheal injury, Urological injury, Vascular injury, Abrasion(s), Contusion(s), Foreign body(s), Hematoma(s), Laceration(s), Encephalopathy, Other Departure Impression: Primary Impression: Subdural hemorrhage Additional Impressions: Intraparenchymal hemorrhage of brain Fall Referrals: NO PRIMARY CARE PROVIDER (PCP) Additional Comment Seen with PA/EMS COORDINATOR The patient was seen with the director medical writing, I have reviewed the residents note and agree with the note as written and with the assesment and plan. I have examined the patient and supervised all aspects of the patients care. The patients pulse oximetry was interpreted as normal and adequate. Signature Scribe Signature: No scribe Attestation: PGY2 resident attestation: Patient was seen and examined with the attending physician Dr. makeda Guerrero MD PGY 2 internal medicine resident The note accurately reflects work and decisions made by me.Malgorzata Chase MD 04/20/25 13:40 ERIC ANTHONY, RES Apr 19, 2025 07:38 MALGORZATA CHASE MD Apr 19, 2025 08:38
[2025-04-19] MEDS: normal saline 1000ML IV soln IVB ONE ×2 (08:06→09:30)
[2025-04-19 08:12] LABS: INR 1.0 INR; MEAN PLATELET VOLUME 7.5 FL (7.4-10.4); RED CELL DISTRIBUTION WIDTH 12.8 % (11.5-14.5)
[2025-04-19 08:16] LABS: CREATININE 0.89 MG/DL (0.40-0.90); TOTAL CARBON DIOXIDE 34.2 MMOL/L (24-32); eCRCL 26 ML/MIN; eGFR 60 ML/MIN
--- NOTE | 2025-04-19 08:24 | RADIOLOGY REPORT ---
EXAM: CT CT HEAD INDICATION: Mechanical fall, hematoma TECHNIQUE: CT of the head without intravenous contrast. Radiation Dose : 1. Head: CT Dose: CTDI volume is 53 mGy. Dose-length product is 925.2 mGy*cm The dose indicators for CT are the volume Computed Tomography (CT) Dose Index (CTDIvol) and the Dose Length Product (DLP), and are measured in units of mGy and mGy-cm, respectively. These indicators are not patient dose, but values generated from the CT scanner acquisition factors. The report includes radiation exposure data for exposures received during this examination. COMPARISON: CT CT HEAD on DOS: 10/22/24, CT HEAD on DOS: 11/04/21 FINDINGS: Small to moderate right frontal subdural hematoma measuring up to 0.9 cm in maximal diameter. Approximately 0.6 cm of leftward midline shift. Left high frontal lobe intraparenchymal hemorrhage measures 0.7 cm. The ventricles, sulci and cisterns are age appropriate. The maurice-white differentiation is intact. Patchy periventricular and subcortical white matter hypoattenuation is nonspecific but may be related to small vessel ischemic disease. The visualized paranasal sinuses and mastoid air cells are clear. Large left parietal soft-tissue hematoma and small soft-tissue laceration. IMPRESSION: Small to moderate right frontal subdural hematoma measuring up to 0.9 cm in maximal diameter. Approximately 0.6 cm of leftward midline shift. Left high frontal lobe intraparenchymal hemorrhage measures 0.7 cm. Critical Result: Intracranial hemorrhage Findings discussed with MALGORZATA CHOUDHURY at 04/19/2025 08:21 AM, and acknowledged receipt and understanding of the findings. Radiation optimization: All CT scans at this facility use at least one of these dose optimization techniques: automated exposure control mA and/or kV adjustment per patient size (includes targeted exams where dose is matched to clinical indication) or iterative reconstruction.
--- NOTE | 2025-04-19 08:35 | RADIOLOGY REPORT ---
EXAM: CT CT CERVICAL SPINE INDICATION: Mechanical fall, hematoma EXAM DATE: 04/19/2025 07:55 AM COMPARISON: CT CT CERVICAL SPINE on DOS: 10/22/24 TECHNIQUE: Multiple axial CT images of the cervical spine were obtained using bone algorithm. Sagittal and coronal reformatting was done. Bone and soft tissue windows were reviewed. Radiation Dose Information: CT Dose: CTDI volume is 9.2 mGy. Dose-length product is 191.8 mGy*cm FINDINGS: The cervical alignment is intact. There is reversal of the cervical lordosis. No acute cervical spine fracture is identified. The vertebral body heights are intact. No suspicious osseous lesions are identified. Multilevel intervertebral disc space narrowing. Multilevel neural foraminal stenosis noted due to facet and uncovertebral hypertrophy. No significant spinal stenosis. There is no prevertebral soft tissue swelling. There is thickening in the lung apices. Emphysema is present. IMPRESSION: 1. No evidence of acute cervical spine fracture or traumatic malalignment. 2. Multilevel degenerative changes of the cervical spine. 3. Emphysema.
[2025-04-19] MEDS: LIDOcaine 1% W/epiNEPHrine 1:100,000 20ml vial IJ ONE (08:52)
[2025-04-19 08:59] LABS: LEUKOCYTE ESTERASE ,URINE NEGATIVE (Neg); NITRITES, URINE POSITIVE (Neg); OCCULT BLOOD,URINE NEGATIVE (Neg)
[2025-04-19 09:06] VITALS: BP 95/54; PULSE 89; RESP 16; TEMP 94.8; O2SAT 100
--- NOTE | 2025-04-19 09:11 | RADIOLOGY REPORT ---
CLINICAL INFORMATION: Sepsis. TECHNIQUE: Single AP portable chest radiograph was obtained. COMPARISON: DI CHEST,SINGLE VIEW on DOS: 10/22/24, CHEST,SINGLE VIEW on DOS: 11/12/21, CHEST,SINGLE VIEW on DOS: 11/11/21 FINDINGS: Lungs: Atelectasis in the lung bases. No focal consolidation. No pneumothorax or pleural effusion visualized. Hyperaeration of the lungs suggesting emphysematous changes. Cardiac: Unchanged cardiomegaly. Pulmonary vasculature: Prominence of the pulmonary vasculature. Mediastinum/reena: Moderate atherosclerotic calcification at the aortic arch. Bones: No acute osseous abnormality identified. Other: No other significant findings. IMPRESSION: 1. Cardiomegaly and prominence of the pulmonary vasculature May suggest a degree of pulmonary vascular congestion in the appropriate clinical setting. 2. Findings consistent with emphysematous changes in the appropriate clinical setting as described above.
[2025-04-19 09:14] LABS: UA COLLECTION TYPE FOLEY CATH
[2025-04-19 09:15] LABS: MUCUS STRANDS NONE SEEN /LPF (Neg); SQUAMOUS EPITHELIAL CELL,UR NONE SEEN /LPF (FEW)
[2025-04-19] MEDS: CefTRIAXone/D5W-Rocephin 1gm 50 ML IV ONE (09:30)
== END 2025-04-19 09:26 ==
LOC: ER 07:06
DX: S01.01XA Laceration without foreign body of scalp, initial encounter (principal); I62.00 Nontraumatic subdural hemorrhage, unspecified; I48.91 Unspecified atrial fibrillation; Z85.038 Personal history of other malignant neoplasm of large intestine; Z88.1 Allergy status to other antibiotic agents; Z88.5 Allergy status to narcotic agent; Z79.899 Other long term (current) drug therapy; W18.39XA Other fall on same level, initial encounter; Y93.89 Activity, other specified; Y92.89 Other specified places as the place of occurrence of the external cause; Y99.8 Other external cause status
CPT/HCPCS: 36415; 70450; 71045; 72125; 80053; 81001; 82550; 83605; 84145; 85025; 85610; 87040; 87077; 87088; 87186; 96360; 99284; A6222; A6258; A6402; C1758; J7030; Z7610; A6449